=== PATIENT | female | born 1985 | race Two or more races ===

== ENCOUNTER 2019-02-25 17:38 | Emergency (ER) | payer MEDICAID ==
[~2019-02-25] VITALS: Ht 167.6 cm; Wt 75.0 kg
[2019-02-25] MEDS ORDERED: ACETAMINOPHEN 325MG TABLET PO PRN (21:45)
[2019-02-25 22:28] LABS: CLARITY URINE TURBID (CLEAR); COLOR URINE YELLOW (YELLOW); KETONES URINE 1+ (NEGATIVE); LEUKOCYTE ESTERASE URINE 2+ (NEGATIVE); NITRITE URINE NEGATIVE (NEGATIVE); OCCULT BLOOD URINE TRACE (NEGATIVE); PH URINE 5.5 (4.5-8.0); PROTEIN URINE NEGATIVE (NEGATIVE); SPECIFIC GRAVITY URINE 1.039 (1.005-1.030)
[2019-02-25 22:37] LABS: EOSINOPHILS % 3.2 % (0.0-5.0); HEMATOCRIT. 39.8 % (36.0-48.0); HEMOGLOBIN. 13.7 g/dL (12.0-16.0); LYMPHOCYTES % 34.4 % (20.0-50.0); MEAN CORPUSCULAR VOLUME 93.1 fL (81.0-99.0); MEAN PLATELET VOLUME 7.9 fl (7.4-10.4); MONOCYTES % 6.5 % (2.0-8.0); NEUTROPHILS % 54.9 % (40.0-76.0); PLATELET 288 x1000/uL (130-400); RED BLOOD CELL COUNT 4.27 mill/uL (4.2-5.4); RED CELL DISTRIBUTION WIDTH 13.5 % (11.6-14.6)
[2019-02-25 22:42] LABS: CHLORIDE 102 mEq/L (98-107)
[2019-02-25 23:06] LABS: B-HCG QUANTITATIVE 1285 mIU/mL (<3)
[2019-02-26 01:38] VITALS: BP 106/67
== END 2019-02-26 02:28 | disposition home or self-care (01) ==
LOC: ER 17:38
DX: O23.41 Unspecified infection of urinary tract in pregnancy, first trimester (principal); O26.891 Other specified pregnancy related conditions, first trimester; E78.00 Pure hypercholesterolemia, unspecified; E10.9 Type 1 diabetes mellitus without complications; Z98.890 Other specified postprocedural states; Z3A.11 11 weeks gestation of pregnancy
CPT/HCPCS: 36415; 76801; 81025; 84702; 87077; 87186; 99284

== ENCOUNTER 2019-02-28 13:46 | Emergency (ER) | payer MEDICAID ==
[~2019-02-28] VITALS: Ht 167.6 cm; Wt 75.0 kg
[2019-02-28 20:14] VITALS: BP 108/68
== END 2019-02-28 20:16 | disposition home or self-care (01) ==
LOC: ER 13:46
DX: O26.891 Other specified pregnancy related conditions, first trimester (principal); Z3A.01 Less than 8 weeks gestation of pregnancy; E11.9 Type 2 diabetes mellitus without complications; E78.00 Pure hypercholesterolemia, unspecified; Z98.890 Other specified postprocedural states
CPT/HCPCS: 36415; 76801; 84702; 99284

== ENCOUNTER 2019-03-03 08:01 | Emergency (ER) | payer MEDICAID ==
[~2019-03-03] VITALS: Ht 167.6 cm; Wt 75.0 kg
[2019-03-03 10:46] VITALS: BP 117/67
== END 2019-03-03 10:50 | disposition home or self-care (01) ==
LOC: ER 08:01
DX: O26.891 Other specified pregnancy related conditions, first trimester (principal); O24.911 Unspecified diabetes mellitus in pregnancy, first trimester; Z98.890 Other specified postprocedural states; Z3A.10 10 weeks gestation of pregnancy
CPT/HCPCS: 36415; 76801; 84702; 99284